=== PATIENT | female | born 1930 | race Two or more races ===

== ENCOUNTER 2018-06-12 16:04 | Inpatient (IN) | payer OTHER, MEDICAID ==
[2018-06-12 16:52] LABS: % BASOPHILS 0.4 % (0.0-2.0); % LYMPHOCYTES 23.8 % (20.0-50.0); % MONOCYTES 5.8 % (2.0-10.0); EOSINOPHILE ABSOLUTE 0.1 Th/cmm (0.1-0.4); LYMPHOCYTE ABSOLUTE 1.9 Th/cmm (1.5-3.0); MEAN CELL VOLUME 88.8 fl (81-100); MEAN CORPUSCULAR HEMOGLOBIN 30.6 pg (27.0-31.0); MEAN CORPUSCULAR HGB CONC 34.4 pg (28.0-36.0); MEAN PLATELET VOLUME 6.8 fl; MONOCYTE ABSOLUTE 0.5 Th/cmm (0.3-1.0); NEUTROPHILE ABSOLUTE 5.6 Th/cmm (1.8-8.0); PLATELET COUNT 528 Th/cmm (150-400); RED BLOOD COUNT 3.93 Mil/cmm (3.80-5.20); RED CELL DISTRIBUTION WIDTH 12.6 % (11.5-20.0); WHITE BLOOD COUNT 8.1 Th/cmm (4.8-10.8)
[2018-06-12 17:14] LABS: ALB/GLOB RATIO 1.3 (1.0-1.8); ALBUMIN 3.7 gm/dL (3.7-5.3); ALKALINE PHOSPHATASE 104 U/L (34-104); ANION GAP 12.1 (7.0-16.0); BILIRUBIN,TOTAL 0.3 mg/dL (0.3-1.0); BUN - UREA NITROGEN 16 mg/dL (7-25); CALCIUM SERUM 9.6 mg/dL (8.6-10.3); CARBON DIOXIDE 25.7 mEq/L (21.0-31.0); CHLORIDE 105 mEq/L (98-107); CREATININE - SERUM 0.6 mg/dL (0.6-1.2); GLUCOSE 149 mg/dL (70-105); MAGNESIUM 2.3 mg/dL (1.9-2.7); PHOSPHOROUS 3.1 mg/dL (2.5-5.0); POTASSIUM SERUM 3.8 mEq/L (3.5-5.1); SGOT 12 U/L (13-39); SGPT/ALT 9 U/L (7-52); SODIUM SERUM 139 mEq/L (136-145); TOTAL PROTEIN,SERUM 6.5 gm/dL (6.0-8.3)
[2018-06-12] MEDS ORDERED: Triple Antibiotic 0.94 gm Pkt TP ONE (17:54)
[2018-06-12 19:30] LABS: BENZODIAZEPINES QUAL URINE POSITIVE (NEGATIVE); TRICYCLICS (TCA) QUAL. URINE POSITIVE (NEGATIVE)
[2018-06-12 19:32] LABS: METHADONE URINE POSITIVE (NEGATIVE)
[2018-06-12 19:33] LABS: AMPHETAMINE URINE NEGATIVE (NEGATIVE); BARBITURATES URINE NEGATIVE (NEGATIVE); CANNABINOID THC NEGATIVE (NEGATIVE); COCAINE METABOLITE QUAL URINE NEGATIVE (NEGATIVE); METHAMPHETAMINES QUAL URINE NEGATIVE (NEGATIVE); OPIATES (MORPHINE) QUAL. URINE NEGATIVE (NEGATIVE); PHENCYCLIDINE (PCP) URINE NEGATIVE (NEGATIVE)
--- NOTE | 2018-06-12 19:45 | ED Physician Chart ---
ED Chief Complaint/HPI - Patient Information Date Seen:: 06/12/18 Time Seen:: 17:12 Chief Complaint:: general weakness x 3 days History of Present Illness:: general weakness x 3 days in a patient with dementia, HTN, DM and peripheral vascular disease. The daughter "can't take care of her" any more and placement is going to be addressed. Allergies:: Allergies Allergy/AdvReac Type Severity Reaction Status Date / Time codeine Allergy Verified 06/12/18 16:35 Vitals:: Vital Signs - 8 hr 06/12/18 17:12 Temp 98.6 F HR 91 RR 18 BP 152/76 O2 Sat % 98 Historian:: Family Member Review:: Nurse's Note Reviewed ED Review of Systems - Review of Systems General/Constitutional: No fever, No chills, No weight loss, No weakness, No diaphoresis, No edema, No loss of appetite, Other (general weakness for 3 days; patient is not ambulatory; ) Skin: Other (BLE wounds) Head: No headache, No light-headedness Eyes: No loss of vision, No pain, No diplopia ENT: No earache, No nasal drainage, No sore throat, No tinnitus Neck: No neck pain, No swelling, No thyromegaly, No stiffness, No mass noted Cardio Vascular: No chest pain, No palpitations, No PND, No orthopnea, No edema Pulmonary: No SOB, No cough, No sputum, No wheezing GI: No nausea, No vomiting, No diarrhea, No pain, No melena, No hematochezia, No constipation, No hematemesis G/U: No dysuria, No frequency, No hematuria Musculoskeletal: No bone or joint pain, No back pain, No muscle pain Endocrine: No polyuria, No polydipsia Psychiatric: No prior psych history, No depression, No anxiety, No suicidal ideation Hematopoietic: No bruising, No lymphadenopathy Allergic/Immuno: No urticaria, No angioedema Neurological: No syncope, No focal symptoms, Weakness, No paresthesia, No headache, No seizure, No dizziness, No confusion, No vertigo ED Past Medical History - Past Medical History Obtainable: No Past Medical History: HTN, DM, Dementia, Other (peripheral vascular disease; BLE wounds; general weakness x 3 days in a patient with dementia, HTN, DM and peripheral vascular disease.) Surgical History: Hysterectomy, HIP, other (bilateral hip replacements) Psychiatricy History: Dementia Family Medical History - Family Member Mother History Unknown: Yes ED Physical Exam - Physical Examination General/Constitutional: Awake, Well-developed, well-nourished Other Gen/Cons comments:: overweight Head: Atraumatic Eyes: Lids, conjuctiva normal, PERRL Other Skin comments:: multiple wounds: R foot with 1.5 cm lateral ulcer L medial foot wound: 3 cm x 2.5 cm in size RLE medial wound which measures 3.8 cm x 2 cm in size R hip with erythema (patient appears to prefer placing pressure R side down on her R side) ENMT: External ears, nose nl Neck: Nontender, No nuchal rigidity Respiratory: Nl effort/Exclusion, Clear to Auscultation, No Wheeze/Rhonchi/Rales Cardio Vascular: RRR, No murmur, gallop, rubs, NL S1 S2 GI: No tenderness/rebounding/guarding, No organomegaly, No hernia, Normal BS's Other Extremities comments:: multiple wounds: R foot with 1.5 cm lateral ulcer L medial foot wound: 3 cm x 2.5 cm in size RLE medial wound which measures 3.8 cm x 2 cm in size R hip with erythema (patient appears to prefer placing pressure R side down on her R side) Neuro/Psych: Mood normal Other Misc comments:: R hip with erythema (patient appears to prefer placing pressure R side down on her R side) ED Labs/Radiology/EKG Results - Lab Results Results: Laboratory Tests 06/12/18 06/12/18 06/12/18 16:46 16:46 16:46 WBC 8.1 RBC 3.93 Hgb 12.0 Hct 35.0 L MCV 88.8 MCH 30.6 MCHC Differential 34.4 RDW 12.6 Plt Count 528 H MPV 6.8 Neutrophils % 69.0 Lymphocytes % 23.8 Monocytes % 5.8 Eosinophils % 1.0 Basophils % 0.4 Sodium 139 Potassium 3.8 Chloride 105 Carbon Dioxide 25.7 Anion Gap 12.1 BUN 16 Creatinine 0.6 Est GFR ( Amer) TNP Est GFR (Non-Af Amer) TNP BUN/Creatinine Ratio 26.7 Glucose 149 H Calcium 9.6 Phosphorus 3.1 Magnesium 2.3 Total Bilirubin 0.3 AST 12 L ALT 9 Alkaline Phosphatase 104 Total Protein 6.5 Albumin 3.7 Globulin 2.8 Albumin/Globulin Ratio 1.3 TSH 2.86 Urine Opiates Screen Urine Methadone Screen Ur Barbiturates Screen Ur Tricyclics Screen Ur Phencyclidine Scrn Amphetamines Screen U Methamphetamines Scrn U Benzodiazepines Scrn U Cocaine Metab Screen U Cannabinoids Screen 06/12/18 18:13 WBC RBC Hgb Hct MCV MCH MCHC Differential RDW Plt Count MPV Neutrophils % Lymphocytes % Monocytes % Eosinophils % Basophils % Sodium Potassium Chloride Carbon Dioxide Anion Gap BUN Creatinine Est GFR ( Amer) Est GFR (Non-Af Amer) BUN/Creatinine Ratio Glucose Calcium Phosphorus Magnesium Total Bilirubin AST ALT Alkaline Phosphatase Total Protein Albumin Globulin Albumin/Globulin Ratio TSH Urine Opiates Screen NEGATIVE Urine Methadone Screen POSITIVE Ur Barbiturates Screen NEGATIVE Ur Tricyclics Screen POSITIVE H Ur Phencyclidine Scrn NEGATIVE Amphetamines Screen NEGATIVE U Methamphetamines Scrn NEGATIVE U Benzodiazepines Scrn POSITIVE H U Cocaine Metab Screen NEGATIVE U Cannabinoids Screen NEGATIVE ED Assessment - Assessment General Assessment: Dr. Carballo has been paged at 20:08. Dr. Carballo answered his page and will admit this patient. ED Septic Shock - . Is Septic Shock (SBP<90, OR Lactate>4 mmol\\L) present?: No - <6hrs of presentation: Vital Signs: Vital Signs - 8 hr 06/12/18 17:12 Temp 98.6 F HR 91 RR 18 BP 152/76 O2 Sat % 98 ED Reassessment (Disposition) - Reassessment Reassessment Condition:: Unchanged - Diagnosis Diagnosis:: Generalized weakness Dementia Diabetes mellitus Hypertension Peripheral vascular disease with several BLE wounds Right hip, stage I decubitus - Patient Disposition Discharge/Transfer:: Acute Care w/in this hosp Accepting Physician:: Dr. Carballo Admitted to:: Med/Surg Condition at Disposition:: Stable, Unchanged
[2018-06-12 19:50] LABS: URINE SOURCE CATH
[2018-06-12 19:51] LABS: URINE BILIRUBIN NEGATIVE (NEGATIVE); URINE BLOOD NEGATIVE (NEGATIVE); URINE GLUCOSE (UA) NEGATIVE (NEGATIVE); URINE KETONE NEGATIVE (NEGATIVE); URINE LEUKOCYTE ESTERASE NEGATIVE (NEGATIVE); URINE NITRATE NEGATIVE (NEGATIVE); URINE PROTEIN NEGATIVE (NEGATIVE); URINE UROBILINOGEN 0.2 E.U./dL (0.2 - 1.0)
[2018-06-12 19:52] LABS: URINE COLOR YELLOW
[2018-06-12 19:55] LABS: URINE CLARITY CLEAR (CLEAR); URINE MICROSCOPIC INDICATED? YES
[2018-06-12 19:56] LABS: URINE BACTERIA FEW /hpf (NONE SEEN); URINE EPITHELIAL CELLS FEW /lpf (FEW); URINE RBC NONE SEEN /hpf (0-5)
[2018-06-12] MEDS ORDERED: Lactated Ringer 1,000 ML IV ONE (21:06)
[2018-06-12 23:17] VITALS: BP 149/79
[2018-06-12] MEDS: cefTRIAXone 1 GM in Sodium Chloride 0.9% 50 ML IV SCH (23:35)
[2018-06-12] MEDS: Sodium Chloride 0.9% 1,000 ML IV SCH (23:36)
[2018-06-13 06:36] LABS: % BASOPHILS 0.6 % (0.0-2.0); % EOSINOPHILS 0.6 % (0.0-5.0); % MONOCYTES 6.3 % (2.0-10.0); % NEUTROPHILS 74.5 % (40.0-80.0); HEMATOCRIT 32.4 % (41.0-60); HEMOGLOBIN 11.1 gm/dL (12-16); LYMPHOCYTE ABSOLUTE 1.5 Th/cmm (1.5-3.0); MEAN CELL VOLUME 88.2 fl (81-100); MEAN CORPUSCULAR HEMOGLOBIN 30.2 pg (27.0-31.0); MEAN CORPUSCULAR HGB CONC 34.2 pg (28.0-36.0); MEAN PLATELET VOLUME 7.1 fl; MONOCYTE ABSOLUTE 0.5 Th/cmm (0.3-1.0); NEUTROPHILE ABSOLUTE 6.3 Th/cmm (1.8-8.0); PLATELET COUNT 464 Th/cmm (150-400); RED BLOOD COUNT 3.68 Mil/cmm (3.80-5.20); RED CELL DISTRIBUTION WIDTH 12.5 % (11.5-20.0); WHITE BLOOD COUNT 8.3 Th/cmm (4.8-10.8)
[2018-06-13] MEDS: INSULIN ASPART SLIDING SCALE 100 UNITS/ML UNIT SUBQ SCH ×4 (06:45→20:42)
[2018-06-13 06:54] LABS: ALB/GLOB RATIO 1.3 (1.0-1.8); ALBUMIN 3.3 gm/dL (3.7-5.3); ALKALINE PHOSPHATASE 92 U/L (34-104); ANION GAP 11.9 (7.0-16.0); BILIRUBIN,TOTAL 0.3 mg/dL (0.3-1.0); BUN - UREA NITROGEN 11 mg/dL (7-25); CALCIUM SERUM 9.5 mg/dL (8.6-10.3); CARBON DIOXIDE 25.7 mEq/L (21.0-31.0); CHLORIDE 107 mEq/L (98-107); CREATININE - SERUM 0.4 mg/dL (0.6-1.2); GLUCOSE 133 mg/dL (70-105); POTASSIUM SERUM 3.6 mEq/L (3.5-5.1); SGOT 11 U/L (13-39); SGPT/ALT 8 U/L (7-52); SODIUM SERUM 141 mEq/L (136-145); TOTAL PROTEIN,SERUM 5.8 gm/dL (6.0-8.3)
[2018-06-13 08:06] LABS: ESR SEDIMENTATION SED RATE 56 mm/hr (0-30)
--- NOTE | 2018-06-13 15:16 | History & Physical ---
ADMIT DATE: 06/13/2018 HISTORY OF PRESENT ILLNESS: This is an 87-year-old female with past medical history of Alzheimer's dementia, who came in because of generalized weakness. Three days prior to admission, the patient developed progressive generalized weakness. This was associated with worsening appetite. Few hours prior to admission, she was very weak. Daughter was unable to take care of her needs. Thus, she was brought to the Emergency Room. Her temperature was 98.1 with a blood pressure of 152/76. White count was 8.1. PAST MEDICAL HISTORY: 1. Type 2 diabetes mellitus. 2. Essential hypertension. 3. Alzheimer dementia. 4. Peptic ulcer disease. 5. DJD. 6. Peripheral neuropathy. PAST SURGICAL HISTORY: Bilateral hip replacements. CURRENT MEDICATIONS: She is currently on ceftriaxone, sodium chloride, aspart sliding scale. ALLERGIES: CODEINE. SOCIAL HISTORY: No history of alcohol or tobacco use. 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 FAMILY HISTORY: Noncontributory to present illness. REVIEW OF SYSTEMS: I was not able to obtain directly from the patient because she remains nonverbal at the present time. PHYSICAL EXAMINATION: GENERAL: The patient is arousable, chronically ill looking, very weak. VITAL SIGNS: Blood pressure is 142/76, pulse 88, temperature 98 degrees. SKIN: Poor turgor, warm, no rash, no jaundice appreciated. HEENT: Head: Normocephalic, atraumatic. Eyes: Extraocular muscles intact. Pupils equal, round, reactive to light and accommodate. Anicteric sclerae. Flat conjunctivae. Nose: Midline nasal septum. Mouth: Dry mucosa. Poor dentition. NECK: Supple, no adenopathy, no thyromegaly, no bruits. Trachea palpated in the midline. CHEST AND CVS: S1, S2. No rub, murmur, nor gallop appreciated. Point of maximal impulse fifth intercostal space, left midclavicular line. No abdominal or femoral bruits appreciated. LUNGS: Equal expansion. No use of accessory muscles. No supraclavicular retractions. Decreased breath sounds, no rales nor wheezes appreciated. BREASTS: Symmetrical without any discharge. ABDOMEN: Flat, soft. Positive for bowel sounds. No bruits either diastolic or systolic. RECTAL: The patient refused. GENITOURINARY: Normal appearing female genitalia. MUSCULOSKELETAL: No effusions present in her joints, but unable to assess her range of motion. EXTREMITIES: No evidence of any edema, cyanosis or clubbing with palpable femoral, popliteal and dorsalis pedis pulses. She has two superficial ulcers on her right foot where there is no drainage and also superficial ulcer on her left leg without any drainage. NEUROLOGIC: As mentioned, the patient is quite drowsy at the present time and weak, so she was not able to follow my neuro commands and I was not able to perform my neuro exam. LABS: Did reveal a white count of 8.3, hemoglobin 11.1, hematocrit 32.4, platelets 464. Sodium 141, potassium 3.6, chloride 107, bicarbonate 25, BUN 11, creatinine 0.4, glucose is 133, albumin 3.3. IMPRESSION: 1. Generalized weakness secondary to failure to thrive and dehydration. 2. Failure to thrive. 3. Dehydration. 4. Multiple superficial foot and leg ulcers. 5. Peripheral neuropathy. 6. Right hip mass. 7. Type 2 diabetes mellitus. 8. Essential hypertension. 9. Alzheimer dementia. 10. Peptic ulcer disease. 11. Degenerative joint disease, status post bilateral hip replacements. PLAN: 1. Continue with IV hydration. 2. Encourage p.o. intake and requested assistance from daughter. 3. If above measures fail, would try appetite stimulant. 4. Request for right hip ultrasound to assess mass. 5. Wound nurse to evaluate. 6. Analgesics. JOB# [id number]
[2018-06-14] MEDS: cefTRIAXone 1 GM in Sodium Chloride 0.9% 50 ML IV SCH (00:28)
[2018-06-14] MEDS: INSULIN ASPART SLIDING SCALE 100 UNITS/ML UNIT SUBQ SCH ×4 (06:42→20:33)
--- NOTE | 2018-06-14 09:35 | Diagnostic Imaging Report ---
Ultrasound soft tissues of the right hip History: Mass, area felt erythematous and hard on clinical exam Comparison: None Technique/procedure: Sonography of the right hip region area of concern was performed in multiple planes. There is diffuse subcutaneous edema. There is thickening of the regional skin. Small amount of fluid is seen throughout the subcutaneous tissues. IMPRESSION: Subcutaneous edema and fluid along the right lateral hip. No drainable collection identified. Please correlate clinically for possible cellulitis. If indicated follow up CT examination may be obtained for further assessment.
[2018-06-14] MEDS ORDERED: Fleet Enema 135 mL RC ONE (20:00)
[2018-06-15] MEDS: cefTRIAXone 1 GM in Sodium Chloride 0.9% 50 ML IV SCH (00:13)
[2018-06-15] MEDS: Sodium Chloride 0.9% 1,000 ML IV SCH (02:44)
[2018-06-15] MEDS: INSULIN ASPART SLIDING SCALE 100 UNITS/ML UNIT SUBQ SCH ×2 (06:31→12:15)
--- NOTE | 2018-06-15 16:29 | Discharge Summary ---
DATE OF DISCHARGE: 06/15/2018 ADMITTING DIAGNOSES: 1. Generalized weakness. 2. Failure to thrive. 3. Clinical dehydration. 4. Right hip erythema and swelling/cellulitis. SECONDARY DIAGNOSES: Include Alzheimer's dementia, essential hypertension, degenerative joint disease, peripheral neuropathy. DISCHARGE DIAGNOSES: 1. Generalized weakness - improved. 2. Failure to thrive - stable. 3. Clinical dehydration - improved. 4. Right hip cellulitis-s/p tx with IV abxs. CONSULTANTS: No consultants were used during this admission. MAJOR PROCEDURES: There was a lower extremity venous ultrasound showing subcutaneous edema and fluid along the right lateral hip. No drainable collection identified. BRIEF HOSPITAL COURSE: The patient is an 87-year-old lady with history of advanced Alzheimer's dementia, who was brought in by the daughter from home given worsening generalized weakness, poor p.o. intake and possible dehydration. Per daughter's account, the patient has been noted to have poor p.o. intake over the last few days and she has been declining physically overall for the last few months, but more noticeable over the last few weeks. There has been no recent illnesses or hospitalizations and per daughter's account, there is no history of falls or trauma. Pertinent findings on admission include an albumin of 3.3 and right hip area of erythema and mild swelling. On further questioning, the patient has had minimal physical activity over the last few weeks and part of the reason family wanted the patient admitted was for physical therapy and possible placement to a longterm facility for further management and care. The patient was placed on IV fluids, empiric IV Rocephin, and was kept on her valsartan for her blood pressure. She has been stable since being admitted and has remained afebrile. The patient was evaled by PT, and her family has arranged transfer to a local longterm facility. MEDICATIONS ON DISCHARGE: Tylenol 650 q. 4 hours p.r.n. for pain, gabapentin 100 mg q. day, valsartan 80 mg q. day, Rocephin 1 gram q. 24 hours x 7 more days, Claritin 10 mg daily, lorazepam 0.5 mg q. 6 p.r.n., losartan 50 mg daily, methadone 5 mg at bedtime, omeprazole 40 mg q. day, Seroquel 25 mg at bedtime, sennosides 8.6 mg two tabs daily. DISPOSITION: The patient was discharged to [facility] under my name. JOB# [id number] MTDD
== END 2018-06-15 14:50 | DRG 603 ==
LOC: ER 16:04 → MSI 22:05
PROVIDERS: ADMIT Internal Medicine; ATTEND Internal Medicine
DX: L03.115 Cellulitis of right lower limb (principal); E86.0 Dehydration; R62.7 Adult failure to thrive; I10 Essential (primary) hypertension; G30.9 Alzheimer's disease, unspecified; F02.80 Dementia in other diseases classified elsewhere, unspecified severity, without behavioral disturbance, psychotic disturbance, mood disturbance, and anxiety; M19.90 Unspecified osteoarthritis, unspecified site; Z96.643 Presence of artificial hip joint, bilateral; E11.51 Type 2 diabetes mellitus with diabetic peripheral angiopathy without gangrene; L89.891 Pressure ulcer of other site, stage 1; L89.211 Pressure ulcer of right hip, stage 1; E11.42 Type 2 diabetes mellitus with diabetic polyneuropathy; K27.9 Peptic ulcer, site unspecified, unspecified as acute or chronic, without hemorrhage or perforation; R22.9 Localized swelling, mass and lump, unspecified; Z88.5 Allergy status to narcotic agent; Z90.710 Acquired absence of both cervix and uterus
CPT/HCPCS: 36415-UA; 76881-TC-RT; 80053-TC; 80307; 81001-TC; 82948-90; 83735-TC; 84100-TC; 84443-TC; 85025-TC; 85652-TC; 86141-TC; J0696; J1815; J2405; J7030; Z7610